=== PATIENT | male | born 1935 | race Caucasian/White ===

== ENCOUNTER 2017-10-27 21:13 | Inpatient (IN) | payer OTHER ==
[~2017-10-27] VITALS: Ht 180.3 cm; Wt 83.8 kg
[2017-10-27] MEDS ORDERED: SODIUM CHLORIDE 0.9% 500 ML IV ONE (21:26)
[2017-10-27 21:52] LABS: Basophils # (auto) 0 uL; Basophils % (auto) 0.3 % (0.0-2.0); Eosinophils # (auto) 0 uL; Hematocrit 48.1 % (41.0-53.0); Hemoglobin 16.4 g/dL (13.5-17.5); Lymphocytes # (auto) 1.1 uL; Lymphocytes % (auto) 8.5 % (10.0-50.0); Mean Corpuscular Hemoglobin 33.2 pg (28.0-32.0); Mean Corpuscular Hgb Conc. 34.1 g/dL (32.0-36.0); Mean Corpuscular Volume 97.6 fL (80.0-100.0); Monocytes # (auto) 0.5 uL; Monocytes % (auto) 3.8 % (0.0-12.0); Neutrophils # (auto) 11.1 uL; Neutrophils % (auto) 87.4 % (37.0-80.0); Platelet Count (auto) 245 10^3/uL (140-450); Red Blood Cells 4.93 10^6/uL (4.5-5.90); Red Cell Distribution Width 14.6 % (11.8-14.3); White Blood Cell 12.7 10^3/uL (4.4-10.8)
[2017-10-27 22:00] LABS: INR 1.18 (0.9-1.15); Partial Thromboplastin Time 29.9 sec (23.78-33.04); Prothrombin Time 12.5 sec (9.27-12.13)
[2017-10-27 22:05] LABS: Albumin 3.9 g/dL (3.4-5.0); Bilirubin, Total 1.5 mg/dL (0.2-1.0); CRP High Sensitivity 0.18 mg/dL (< 0.3); Calcium 9.2 mg/dL (8.5-10.1); Potassium 3.6 mmol/L (3.5-5.1); Total Protein 7.9 g/dL (6.4-8.2)
[2017-10-27 22:07] LABS: Lactic Acid w/Reflex 2.5 mmol/L (0.4-2.0)
[2017-10-27 22:12] LABS: Magnesium 2.7 mg/dL (1.6-2.6)
[2017-10-27 22:27] LABS: Urine Bacteria FEW /hpf (None Seen); Urine Blood 1+ /uL (Negative); Urine Mucus FEW (None Seen); Urine WBC 3 /hpf (0 - 3)
[2017-10-28] MEDS ORDERED: NITROGLYCERIN 0.4 MG SL TAB SL PRN (07:15)
[2017-10-28] MEDS ORDERED: SOD CHL 0.45% 1,000 ML IV ONE (07:15)
[2017-10-28] MEDS ORDERED: MORPHINE SULFATE 4 MG/ML SYR/VIAL IV PRN (07:15)
[2017-10-28] MEDS ORDERED: VANCOMYCIN PER PHARMACY 0 MG IV SCH (07:15)
[2017-10-28 07:58] LABS: Basophils # (auto) 0 uL; Basophils % (auto) 0.3 % (0.0-2.0); Eosinophils # (auto) 0 uL; Hemoglobin 15.1 g/dL (13.5-17.5); Lymphocytes # (auto) 2.2 uL; Lymphocytes % (auto) 15.2 % (10.0-50.0); Mean Corpuscular Hemoglobin 33.7 pg (28.0-32.0); Mean Corpuscular Hgb Conc. 33.6 g/dL (32.0-36.0); Mean Corpuscular Volume 100.4 fL (80.0-100.0); Monocytes # (auto) 1.3 uL; Monocytes % (auto) 9.2 % (0.0-12.0); Neutrophils # (auto) 10.9 uL; Neutrophils % (auto) 75.3 % (37.0-80.0); Platelet Count (auto) 205 10^3/uL (140-450); Red Blood Cells 4.48 10^6/uL (4.5-5.90); Red Cell Distribution Width 15.1 % (11.8-14.3); White Blood Cell 14.5 10^3/uL (4.4-10.8)
[2017-10-28] MEDS: PIPERACILLIN-TAZOB 3.375GM 100 ML IV SCH ×2 (08:06→18:27)
[2017-10-28 08:12] LABS: Albumin 3.4 g/dL (3.4-5.0); Bilirubin, Total 1.6 mg/dL (0.2-1.0); Calcium 8.3 mg/dL (8.5-10.1); Potassium 3.8 mmol/L (3.5-5.1); Total Protein 7.2 g/dL (6.4-8.2)
[2017-10-28] MEDS ORDERED: VANCOMYCIN 1GM/250ML 250 ML IV SCH ×2 (09:00→09:30)
[2017-10-28 10:19] VITALS: BP 122/75
[2017-10-28] MEDS: VANCOMYCIN 1GM/250ML 250 ML IV SCH ×2 (11:00→12:07)
[2017-10-28 13:00] VITALS: BP 115/77
[2017-10-28 17:00] VITALS: BP 107/50
[2017-10-28 17:23] VITALS: BP 139/76
[2017-10-28] MEDS ORDERED: ENOXAPARIN SOD 40 MG/0.4 ML SYRINGE SC ONE (17:38)
[2017-10-28] MEDS ORDERED: ASPirin-EC 81 mg tab PO ONE (17:38)
[2017-10-28] MEDS ORDERED: D5W/LACTATED RINGERS 1,000 ML IV SCH (17:45)
[2017-10-28 20:00] VITALS: BP 111/58
[2017-10-28 22:00] VITALS: BP 111/58
[2017-10-28] MEDS ORDERED: ATORVASTATIN 20 MG TAB PO SCH (22:00)
[2017-10-29] MEDS: PIPERACILLIN-TAZOB 3.375GM 100 ML IV SCH (00:20)
[2017-10-29 05:00] VITALS: BP 134/69
[2017-10-29] MEDS: VANCOMYCIN 1GM/250ML 250 ML IV SCH (05:02)
[2017-10-29 07:42] LABS: Basophils # (auto) 0.1 uL; Basophils % (auto) 0.6 % (0.0-2.0); Eosinophils # (auto) 0.1 uL; Eosinophils % (auto) 0.9 % (0.0-7.0); Hematocrit 44.9 % (41.0-53.0); Hemoglobin 14.9 g/dL (13.5-17.5); Lymphocytes # (auto) 2.1 uL; Lymphocytes % (auto) 18.3 % (10.0-50.0); Mean Corpuscular Hemoglobin 33.2 pg (28.0-32.0); Mean Corpuscular Hgb Conc. 33.1 g/dL (32.0-36.0); Mean Corpuscular Volume 100.2 fL (80.0-100.0); Monocytes # (auto) 0.7 uL; Neutrophils # (auto) 8.5 uL; Neutrophils % (auto) 74.2 % (37.0-80.0); Nucleated Red Blood Cells % 0.1 %; Platelet Count (auto) 203 10^3/uL (140-450); Red Blood Cells 4.47 10^6/uL (4.5-5.90); Red Cell Distribution Width 14.7 % (11.8-14.3); White Blood Cell 11.4 10^3/uL (4.4-10.8)
[2017-10-29 08:32] LABS: INR 1.09 (0.9-1.15); Prothrombin Time 11.6 sec (9.27-12.13)
[2017-10-29 08:42] VITALS: BP 137/73
[2017-10-29] MEDS: Ensure HIGH Protein Chocolate 8oz Bottle PO SCH ×3 (09:51→17:38)
[2017-10-29] MEDS ORDERED: ATOR20TA50 PO (09:54)
[2017-10-29] MEDS ORDERED: ASP81EC PO (09:54)
[2017-10-29] MEDS ORDERED: ASPirin-EC 81 mg tab PO SCH (10:00)
[2017-10-29] MEDS ORDERED: ENOXAPARIN SOD 40 MG/0.4 ML SYRINGE SC SCH (10:00)
[2017-10-29 10:19] LABS: BUN/Creatinine Ratio 26.9; Calcium 8.3 mg/dL (8.5-10.1); Potassium 3.3 mmol/L (3.5-5.1)
[2017-10-29 10:22] LABS: Bilirubin, Total 1.4 mg/dL (0.2-1.0); Total Protein 6.6 g/dL (6.4-8.2)
[2017-10-29 12:29] VITALS: BP 99/64
[2017-10-29] MEDS ORDERED: D5W/SOD CHLO 0.9% 1,000 ML IV SCH (13:45)
[2017-10-29] MEDS ORDERED: D5W 5% 1,000 ML IV SCH (15:30)
[2017-10-29 17:04] VITALS: BP 107/59
[2017-10-29 18:25] VITALS: BP 107/59
[2017-10-29 22:26] VITALS: BP 128/71
== END 2017-10-29 21:25 | disposition short-term general hospital (02) | DRG 871 ==
LOC: EDBD 21:13 → ER 21:13 → EDUNIT# 21:13 → EDBD 21:14 → TELE 21:14 → TELE-EAST 10-28 09:46
PROVIDERS: ADMIT Internal Medicine; ATTEND Internal Medicine
DX: A41.9 Sepsis, unspecified organism (principal); G92 Toxic encephalopathy; E87.0 Hyperosmolality and hypernatremia; I31.3 Pericardial effusion (noninflammatory); N17.9 Acute kidney failure, unspecified; I69.354 Hemiplegia and hemiparesis following cerebral infarction affecting left non-dominant side; E86.0 Dehydration; I10 Essential (primary) hypertension; I48.2 Chronic atrial fibrillation; K57.30 Diverticulosis of large intestine without perforation or abscess without bleeding; N28.89 Other specified disorders of kidney and ureter; Z88.2 Allergy status to sulfonamides; Z79.899 Other long term (current) drug therapy
CPT/HCPCS: 36415; 70450; 71045; 74176; 80053; 81001; 82140; 82150; 83605; 83690; 83735; 83880; 84484; 85025; 85610; 85730; 86141; 87040; 87086; 93005; 93306; 93886; 94761; 96360; 96361; 97163; 99291; J2543; J7042

== ENCOUNTER 2017-12-12 14:41 | Inpatient (IN) | payer MEDICARE, OTHER ==
[~2017-12-12] VITALS: Ht 193 cm; Wt 120.7 kg
[2017-12-12 02:00] VITALS: BP 122/68
[~2017-12-12 14:41] MED LIST: ASP81EC PO; ATOR20TA50 PO
[2017-12-12 16:07] LABS: INR 1.17 (0.9-1.15); Partial Thromboplastin Time 30.4 sec (23.78-33.04); Prothrombin Time 12.4 sec (9.27-12.13)
[2017-12-12 16:08] LABS: Basophils # (auto) 0.1 uL; Basophils % (auto) 1.1 % (0.0-2.0); Eosinophils # (auto) 0.3 uL; Eosinophils % (auto) 2.9 % (0.0-7.0); Hematocrit 36.6 % (41.0-53.0); Hemoglobin 12.3 g/dL (13.5-17.5); Lymphocytes # (auto) 2.8 uL; Lymphocytes % (auto) 26.5 % (10.0-50.0); Mean Corpuscular Hgb Conc. 33.5 g/dL (32.0-36.0); Mean Corpuscular Volume 95.4 fL (80.0-100.0); Monocytes # (auto) 0.8 uL; Monocytes % (auto) 7.2 % (0.0-12.0); Neutrophils # (auto) 6.5 uL; Neutrophils % (auto) 62.3 % (37.0-80.0); Nucleated Red Blood Cells % 0.1 %; Platelet Count (auto) 381 10^3/uL (140-450); Red Blood Cells 3.83 10^6/uL (4.5-5.90); Red Cell Distribution Width 14.1 % (11.8-14.3); White Blood Cell 10.5 10^3/uL (4.4-10.8)
[2017-12-12 16:19] LABS: Alanine Aminotransferase 27 U/L (16-61); Albumin 2.7 g/dL (3.4-5.0); Alkaline Phosphatase 101 U/L (45-117); Anion Gap 6 (5-15); Aspartate Aminotransferase 26 U/L (15-37); BUN/Creatinine Ratio 20.3; Bilirubin, Total 0.6 mg/dL (0.2-1.0); Blood Urea Nitrogen 27 mg/dL (7-18); Calcium 8.2 mg/dL (8.5-10.1); Carbon Dioxide 26 mmol/L (21-32); Chloride 104 mmol/L (98-107); GFR African American 66 mL/min; GFR Non-African American 54 mL/min; Glucose 108 mg/dL (74-106); Magnesium 2.5 mg/dL (1.6-2.6); Potassium 3.6 mmol/L (3.5-5.1); Sodium 136 mmol/L (136-145); Total Protein 6.7 g/dL (6.4-8.2)
[2017-12-12] MEDS ORDERED: IOHEXOL 350 MG/ML 100ML IJ ONE (18:43)
[2017-12-12] MEDS ORDERED: ENOXAPARIN SOD 100 MG/1 ML SYRINGE SC ONE (21:15)
[2017-12-12] MEDS ORDERED: ENOXAPARIN SOD 120 MG/0.8 ML SYRINGE SC ONE (21:30)
[2017-12-13] MEDS ORDERED: ACETAMINOPHEN 500 MG TAB PO PRN
[2017-12-13] MEDS ORDERED: ONDANSETRON HCL 4 MG/2 ML VIAL IV PRN
[2017-12-13] MEDS ORDERED: LORazepam 0.5 MG TAB PO PRN (00:15)
[2017-12-13 05:30] VITALS: BP 109/80
[2017-12-13 05:31] LABS: Urine Bacteria FEW /hpf (None Seen); Urine Blood 3+ /uL (Negative); Urine Specific Gravity 1.008 (1.001-1.035); Urine WBC 14 /hpf (0 - 3)
[2017-12-13 05:51] LABS: Basophils # (auto) 0.1 uL; Basophils % (auto) 0.5 % (0.0-2.0); Eosinophils # (auto) 0.3 uL; Eosinophils % (auto) 3.2 % (0.0-7.0); Hematocrit 36.1 % (41.0-53.0); Hemoglobin 12.1 g/dL (13.5-17.5); Lymphocytes # (auto) 2.5 uL; Lymphocytes % (auto) 25.4 % (10.0-50.0); Mean Corpuscular Hemoglobin 31.8 pg (28.0-32.0); Mean Corpuscular Hgb Conc. 33.5 g/dL (32.0-36.0); Mean Corpuscular Volume 94.7 fL (80.0-100.0); Monocytes # (auto) 0.8 uL; Monocytes % (auto) 7.7 % (0.0-12.0); Neutrophils # (auto) 6.3 uL; Neutrophils % (auto) 63.2 % (37.0-80.0); Nucleated Red Blood Cells % 0.1 %; Platelet Count (auto) 393 10^3/uL (140-450); Red Blood Cells 3.81 10^6/uL (4.5-5.90); Red Cell Distribution Width 14.2 % (11.8-14.3)
[2017-12-13 06:11] LABS: BUN/Creatinine Ratio 19.8; Calcium 8.3 mg/dL (8.5-10.1); Potassium 3.6 mmol/L (3.5-5.1)
[2017-12-13] MEDS: HYDROcodone-ACET 5/325MG TAB PO PRN (06:24)
[2017-12-13 09:00] VITALS: BP 136/80
[2017-12-13] MEDS: ENOXAPARIN SOD 120 MG/0.8 ML SYRINGE SC SCH ×2 (10:01→21:53)
[2017-12-13 12:50] VITALS: BP 114/68
[2017-12-13 16:51] VITALS: BP 107/60
[2017-12-13] MEDS: ATORVASTATIN 20 MG TAB PO SCH (21:53)
[2017-12-13 22:00] VITALS: BP 132/62
[2017-12-14 04:35] VITALS: BP 110/65
[2017-12-14 05:00] VITALS: BP 135/62
[2017-12-14 08:27] VITALS: BP 103/57
[2017-12-14] MEDS: ENOXAPARIN SOD 120 MG/0.8 ML SYRINGE SC SCH (10:21)
[2017-12-14 13:00] VITALS: BP 104/55
[2017-12-14] MEDS ORDERED: diphenhdrAMINE HCL 50 MG/1 ML VL IV ONE (13:00)
[2017-12-14] MEDS: ATORVASTATIN 20 MG TAB PO SCH (21:25)
[2017-12-14 21:38] VITALS: BP 105/56
[2017-12-14] MEDS ORDERED: ENOXAPARIN SOD 120 MG/0.8 ML SYRINGE SC ONE (22:00)
[2017-12-15 06:03] VITALS: BP 135/60
[2017-12-15] MEDS: cefTRIAXone 1GM/10ml IVPUSH 10 ML IV SCH (09:15)
[2017-12-15 10:12] LABS: Urine Bacteria MOD /hpf (None Seen); Urine Blood 3+ /uL (Negative); Urine Specific Gravity 1.015 (1.001-1.035); Urine WBC 1638 /hpf (0 - 3); Urine WBC Clumps PRESENT /hpf (None Seen)
[2017-12-15 12:22] VITALS: BP 103/50
[2017-12-15] MEDS ORDERED: IOHEXOL 350 MG/ML 100ML IJ ONE (12:41)
[2017-12-15] MEDS ORDERED: LIDOCAINE 2% (LOCAL ANESTH.) PF 5ml SDV ONE (12:41)
[2017-12-15] MEDS ORDERED: fentaNYL CITRATE 100 MCG/2 ML VL ONE (13:10)
[2017-12-15 18:40] VITALS: BP 109/68
[2017-12-15] MEDS: ATORVASTATIN 20 MG TAB PO SCH (21:40)
[2017-12-15 21:56] VITALS: BP 98/58
[2017-12-16] MEDS: HYDROcodone-ACET 5/325MG TAB PO PRN (02:29)
[2017-12-16 05:00] VITALS: BP 108/56
[2017-12-16 08:00] VITALS: BP 108/56
[2017-12-16 08:49] VITALS: BP 92/51
[2017-12-16] MEDS: cefTRIAXone 1GM/10ml IVPUSH 10 ML IV SCH (10:11)
[2017-12-16 12:00] VITALS: BP 120/76
[2017-12-16 17:00] VITALS: BP 115/74
[2017-12-16] MEDS: ATORVASTATIN 20 MG TAB PO SCH (21:48)
[2017-12-16 22:00] VITALS: BP 105/61
[2017-12-17 04:59] VITALS: BP 102/52
[2017-12-17] MEDS ORDERED: MULTIPLE VITAMINS W/ MINERALS TAB PO SCH (10:00)
[2017-12-17 10:06] VITALS: BP 98/55
[2017-12-17] MEDS: cefTRIAXone 1GM/10ml IVPUSH 10 ML IV SCH (10:32)
[2017-12-17] MEDS: ASCORBIC ACID 500 MG TAB PO SCH ×2 (10:32→22:13)
[2017-12-17 15:41] VITALS: BP_SYST 105; BP_SYST 87; BP_DIAS 58; BP_DIAS 59
[2017-12-17 21:59] VITALS: BP 105/68
[2017-12-17] MEDS: ATORVASTATIN 20 MG TAB PO SCH (22:13)
[2017-12-18 05:17] VITALS: BP 100/54
[2017-12-18 08:00] VITALS: BP 98/53
[2017-12-18 09:38] VITALS: BP 98/53
[2017-12-18 13:09] VITALS: BP 111/49
[2017-12-18 13:31] VITALS: BP 111/49
== END 2017-12-18 16:08 | DRG 253 ==
LOC: EDBD 14:41 → ER 14:41 → TELE 14:42 → TELE-CENTR 12-13 01:47
PROVIDERS: ADMIT Nurse Practitioner Family; ATTEND Family Medicine
PROC: 06H03DZ Insertion of Intraluminal Device into Inferior Vena Cava, Percutaneous Approach (ICD-10-PCS; principal; 2017-12-15)
DX: I82.403 Acute embolism and thrombosis of unspecified deep veins of lower extremity, bilateral (principal); I31.3 Pericardial effusion (noninflammatory); N39.0 Urinary tract infection, site not specified; E44.1 Mild protein-calorie malnutrition; I69.354 Hemiplegia and hemiparesis following cerebral infarction affecting left non-dominant side; J98.11 Atelectasis; I25.10 Atherosclerotic heart disease of native coronary artery without angina pectoris; L89.522 Pressure ulcer of left ankle, stage 2; N18.9 Chronic kidney disease, unspecified; D64.9 Anemia, unspecified; B96.1 Klebsiella pneumoniae [K. pneumoniae] as the cause of diseases classified elsewhere; E78.00 Pure hypercholesterolemia, unspecified; I48.2 Chronic atrial fibrillation; B96.20 Unspecified Escherichia coli [E. coli] as the cause of diseases classified elsewhere; I70.0 Atherosclerosis of aorta; I71.2 Thoracic aortic aneurysm, without rupture; J44.9 Chronic obstructive pulmonary disease, unspecified; M71.22 Synovial cyst of popliteal space [Baker], left knee; Z79.01 Long term (current) use of anticoagulants; Z85.828 Personal history of other malignant neoplasm of skin; Z87.891 Personal history of nicotine dependence; I25.2 Old myocardial infarction; Z79.899 Other long term (current) drug therapy; Z79.82 Long term (current) use of aspirin; Z68.32 Body mass index [BMI] 32.0-32.9, adult; L89.151 Pressure ulcer of sacral region, stage 1
CPT/HCPCS: 36415; 37191; 71045; 71275; 80048; 80053; 81001; 83735; 83880; 84484; 85025; 85379; 85610; 85730; 86850; 86900; 86901; 87040; 87081; 87086; 87088; 87186; 92610; 93005; 93306; 93970; 94761; 96372; 99152; A6257; J0696; J2001